=== PATIENT | female | born 1995 | race African-American/Black ===

== ENCOUNTER 2016-09-03 22:30 | Emergency (ER) | payer SELFPAY ==
[2016-09-03 23:00] VITALS: BP 125/67; PULSE 115; TEMP 98.7; BMI 25.8
== END 2016-09-03 22:55 | disposition left against medical advice (07) ==
LOC: SUPCPDRO 22:30 → JER 22:30
DX: Z53.21 Procedure and treatment not carried out due to patient leaving prior to being seen by health care provider (principal)
CPT/HCPCS: 99281-25